=== PATIENT | female | born 1970 | race Caucasian/White ===

== ENCOUNTER → 2017-05-21 | Outpatient (CLI) | payer OTHER ==
[~2017-05-21] MED LIST: ASPIRIN81 M2 PO; ATORVASTATIN CA10 MG PO; Fioricet,Esgic,Repan PO; IBUPROFEN800 MG PO; LIPITOR10 MG PO; LISINOPRIL5 MG PO; LO-DOSE ASPIRIN81 M2 PO; XYLOCAINE VISC100 ML MM; ~No Medications
== END | disposition home or self-care (01) ==
LOC: CDC 11:05
DX: Z01.810 Encounter for preprocedural cardiovascular examination (principal); M75.22 Bicipital tendinitis, left shoulder
CPT/HCPCS: 93000

== ENCOUNTER 2017-05-28 10:50 | Day surgery (SDC) | payer OTHER ==
[~2017-05-28] VITALS: Ht 152.4 cm; Wt 74.4 kg
[2017-05-28 11:38] VITALS: BP 107/59
[2017-05-28 17:20] VITALS: BP 116/54
[2017-05-28 18:20] VITALS: BP 113/68
[2017-05-28 19:20] VITALS: BP 99/58
== END 2017-05-28 19:40 | disposition home or self-care (01) ==
LOC: SDC 10:50
DX: M75.122 Complete rotator cuff tear or rupture of left shoulder, not specified as traumatic (principal); M19.012 Primary osteoarthritis, left shoulder; M75.22 Bicipital tendinitis, left shoulder; I10 Essential (primary) hypertension; F17.200 Nicotine dependence, unspecified, uncomplicated; Z79.82 Long term (current) use of aspirin; Z86.73 Personal history of transient ischemic attack (TIA), and cerebral infarction without residual deficits; Z90.710 Acquired absence of both cervix and uterus
CPT/HCPCS: C1713; J0171; J0330; J0690; J1100; J2250; J2405; J2765; J2795; J3010

== ENCOUNTER 2017-06-03 04:56 | Emergency (ER) | payer OTHER ==
[~2017-06-03] VITALS: Ht 152.4 cm; Wt 74.5 kg
[2017-06-03 07:35] LABS: BASOPHIL (%) 0.4 % (0-1); EOSINOPHIL (%) 3.1 % (0-5); EOSINOPHIL COUNT 0.3 K/uL (0-0.3); HEMATOCRIT 34.4 % (36.0-46.0); IMMATURE GRANULOCYTE (%) 0.5 % (0.0-0.7); LYMPHOCYTE (%) 21.3 % (15-42); LYMPHOCYTE COUNT 2.2 K/uL (1.0-2.8); MCH 31.2 PG (29.0-34.0); MCHC 33.7 G/DL (30.0-36.0); MCV 92.5 FL (83-99); MONOCYTE (%) 6.9 % (3-12); MONOCYTE COUNT 0.7 K/uL (0-0.8); NEUTROPHIL (%) 67.8 % (45-76); NEUTROPHIL COUNT 6.9 K/uL (1.8-6.4); PLATELET COUNT 273 K/uL (156-360); RBC DIS.WIDTH-CV 13.8 % (11.8-14.6); RBC DIS.WIDTH-SD 46.4 % (39-53); RED BLOOD COUNT 3.72 M/uL (3.80-5.20); WHITE BLOOD COUNT 10.2 K/uL (4.1-10.2)
[2017-06-03 07:50] LABS: HEMOGLOBIN 11.6 G/DL (11.9-15.5)
[2017-06-03 08:15] LABS: CHLORIDE 107 MEQ/L (99-109); CK-MB 1.1 ng/mL (0.0-4.9); CREATINE KINASE 160 IU/L (1-294); CREATININE 0.7 MG/DL (0.6-1.3); GFR ESTIMATE (CALCULATED) > 59 mL/min/; GLUCOSE 93 mg/dL (70-99); SODIUM 140 MEQ/L (136-147); UREA NITROGEN (BUN) 6 mg/dL (9-23)
[2017-06-03 08:51] VITALS: BP 119/96
[2017-06-03 09:06] LABS: CKMB RELATIVE INDEX 0.7 (0.0-3.9); TOTAL CK 160 IU/L (1-294)
== END 2017-06-03 08:52 | disposition home or self-care (01) ==
LOC: EME 04:56
PROVIDERS: Emergency Medicine
DX: M79.604 Pain in right leg (principal); M79.605 Pain in left leg; M79.89 Other specified soft tissue disorders; Z98.890 Other specified postprocedural states; I10 Essential (primary) hypertension; Z79.82 Long term (current) use of aspirin; F17.200 Nicotine dependence, unspecified, uncomplicated
CPT/HCPCS: 80048; 82550; 82553; 85025; 93970; 99281; 99284

== ENCOUNTER 2017-08-30 11:01 | Day surgery (SDC) | payer OTHER ==
[~2017-08-30] VITALS: Ht 152.4 cm; Wt 73.4 kg
[~2017-08-30 11:01] MED LIST changes: +ATARAX,VISTARIL25 MG PO; +NORCO 5/3251 TABLET PO; +ONDANSETRON HCL4 MG PO; +TYLENOL WITH C1 EACH PO
[2017-08-30 12:04] VITALS: BP 131/74
[2017-08-30 16:49] VITALS: BP 111/77
[2017-08-30 17:34] VITALS: BP 115/65
== END 2017-08-30 18:00 | disposition home or self-care (01) ==
LOC: SDC
DX: M75.02 Adhesive capsulitis of left shoulder (principal); M75.22 Bicipital tendinitis, left shoulder; I10 Essential (primary) hypertension; Z86.73 Personal history of transient ischemic attack (TIA), and cerebral infarction without residual deficits; Z79.82 Long term (current) use of aspirin
CPT/HCPCS: J0131; J0171; J0690; J1170; J1885; J2250; J2405; J2710; J2795; J7643; S0020